=== PATIENT | female | born 1930 | race Asian ===

== ENCOUNTER 2019-05-25 17:39 | Inpatient (IN) | payer MEDICARE, OTHER ==
[~2019-05-25] VITALS: Ht 154.9 cm; Wt 56.9 kg
[2019-05-25] MEDS ORDERED: ONDANSETRON ODT 4 MG ONE (18:42)
--- NOTE | 2019-05-25 18:51 | NUR ---
MEDICATED FOR NAUSEA. REPORT TO CHARLY LAMAS.
[2019-05-25 18:59] LABS: MEAN CORPUSCULAR HEMOGLOBIN 21.8 pg (27.0-34.8); MEAN CORPUSCULAR HGB CONC 31.2 g/dL (32.4-35.8); MEAN CORPUSCULAR VOLUME 70.1 fL (80-100); MEAN PLATELET VOLUME 9.3 fL (7.4-10.4); PLATELET COUNT 266 x10^3/uL (130-400); RED BLOOD COUNT 5.54 x10^6/uL (3.82-5.3); RED CELL DISTRIBUTION WIDTH 15.8 % (9.6-15.2)
[2019-05-25] MEDS ORDERED: ONDANSETRON ODT 4 MG PO ONE (19:00)
[2019-05-25 19:01] LABS: ALANINE AMINOTRANSFERASE 26 U/L (12-78); ALBUMIN 3.8 g/dL (3.4-5.0); ANION GAP 6 mmol/L (5-15); CALCIUM 8.4 mg/dL (8.5-10.1); CHLORIDE 110 mmol/L (98-107); CREATININE 1.11 mg/dL (0.55-1.02)
[2019-05-25 19:03] LABS: ALKALINE PHOSPHATASE 64 U/L (45-117); BILIRUBIN,TOTAL 0.2 mg/dL (0.2-1.0); TOTAL PROTEIN 8.1 g/dL (6.4-8.2)
--- NOTE | 2019-05-25 19:10 | NUR ---
Received report from Kelley LAMAS. Assumed patient care. Patient resting comfortably. Medicated by day shift for nausea. Will follow up to see how patient respnds.
[2019-05-25 19:24] LABS: BASOPHILS % (AUTO) 0 % (0-1); EOSINOPHILS # (AUTO) 0.05 x10^3/uL (0-0.4); EOSINOPHILS % (AUTO) 1 % (1-7); LYMPHOCYTES # (AUTO) 2.72 x10^3/uL (1-3.4); LYMPHOCYTES % (AUTO) 25 % (22-44); MD MORPH REVIEW ONLY; MONOCYTES # (AUTO) 0.35 x10^3/uL (0.2-0.8); MONOCYTES % (AUTO) 3 % (2-9); NEUTROPHILS # (AUTO) 7.77 x10^3/uL (1.8-6.8); NEUTROPHILS % (AUTO) 71 % (42-75)
[2019-05-25 19:25] LABS: ANISOCYTOSIS 1+; HYPOCHROMIA 1+; MICROCYTOSIS 1+; OVALOCYTES 1+; POLYCHROMASIA 1+
[2019-05-25 19:26] LABS: <PLATELET ESTIMATE> ADEQUATE; <PLT MORPHOLOGY> NORMAL PLT MORPH; TARGET CELLS 1+
[2019-05-25] MEDS ORDERED: SODIUM CHLORIDE 0.9%, 500ML IVBOLUS ONE (19:30)
--- NOTE | 2019-05-25 20:34 | NUR ---
Started IV per protcol, ivf fluids. Informed of PO challenge, patient preferred to attempted. Patient tolerated approximately 80cc of water. On return, 500cc bolus of normal saline finished. Relayed information to provider. Provider to bedside, spoke with patient. Patient relayed how little water she was able to tolerate and also expressed not feeling well enough to tolerate food. Patient agreeable to admission.
[2019-05-25] MEDS ORDERED: LOSA1TAB19 PO (21:30)
[2019-05-25] MEDS ORDERED: ONDANSETRON 2MG/ML, 2ML IVPush PRN (21:30)
[2019-05-25] MEDS ORDERED: CLON0.5T PO (21:30)
[2019-05-25] MEDS ORDERED: FAMO20TA7 PO (21:30)
[2019-05-25] MEDS ORDERED: METF500T17 PO (21:30)
[2019-05-25] MEDS ORDERED: ACETAMINOPHEN 325 MG TABLET PO PRN (21:30)
[2019-05-25 22:14] VITALS: BP 136/67
[2019-05-25] MEDS: SODIUM CHLORIDE 0.9% 1,000 ML IV SCH (22:19)
[2019-05-25 22:20] VITALS: BP 136/67
[2019-05-26] VITALS (10 sets, daily range): BP systolic 122–179; BP diastolic 63–78
[2019-05-26 00:23] LABS: CLOSTRIDIUM DIFFICILE ANTIGEN NEGATIVE; CLOSTRIDIUM DIFFICILE TOXIN NEGATIVE (Negative)
[2019-05-26 10:45] LABS: ALANINE AMINOTRANSFERASE 30 U/L (12-78); ALBUMIN 3.4 g/dL (3.4-5.0); ANION GAP 8 mmol/L (5-15); CALCIUM 7.9 mg/dL (8.5-10.1); CHLORIDE 113 mmol/L (98-107); CREATININE 1.09 mg/dL (0.55-1.02)
[2019-05-26 10:48] LABS: ALKALINE PHOSPHATASE 58 U/L (45-117); BILIRUBIN,TOTAL 0.3 mg/dL (0.2-1.0); TOTAL PROTEIN 7.5 g/dL (6.4-8.2)
[2019-05-26 11:01] LABS: MEAN CORPUSCULAR HEMOGLOBIN 21.1 pg (27.0-34.8); MEAN CORPUSCULAR HGB CONC 30.4 g/dL (32.4-35.8); MEAN CORPUSCULAR VOLUME 69.2 fL (80-100); RED BLOOD COUNT 5.46 x10^6/uL (3.82-5.3); RED CELL DISTRIBUTION WIDTH 16.1 % (9.6-15.2)
[2019-05-26 11:02] LABS: BASOPHILS # (AUTO) 0.02 x10^3/uL (0-0.1); BASOPHILS % (AUTO) 0 % (0-1); EOSINOPHILS # (AUTO) 0.11 x10^3/uL (0-0.4); EOSINOPHILS % (AUTO) 1 % (1-7); LYMPHOCYTES # (AUTO) 1.24 x10^3/uL (1-3.4); LYMPHOCYTES % (AUTO) 15 % (22-44); MD NO; MONOCYTES # (AUTO) 0.54 x10^3/uL (0.2-0.8); MONOCYTES % (AUTO) 7 % (2-9); NEUTROPHILS # (AUTO) 6.19 x10^3/uL (1.8-6.8); NEUTROPHILS % (AUTO) 77 % (42-75); PLATELET COUNT 209 x10^3/uL (130-400)
[2019-05-26] MEDS: SODIUM CHLORIDE 0.9% 1,000 ML IV SCH (11:26)
[2019-05-26 12:41] LABS: HEMOGLOBIN A1C 7.4 % (4.2-6.3)
[2019-05-26] MEDS: POTASSIUM PHOSPHATE 44 MEQ in SODIUM CHLORIDE 0.9% 500 ML IV SCH (20:38)
[2019-05-26] MEDS: INSULIN LISPRO 100 UNITS/ML, PEN SQ-INSULIN SCH (20:39)
[2019-05-27 03:21] VITALS: BP 124/56
[2019-05-27] MEDS: POTASSIUM PHOSPHATE 44 MEQ in SODIUM CHLORIDE 0.9% 500 ML IV SCH (05:15)
[2019-05-27 06:31] LABS: ANION GAP 8 mmol/L (5-15); CHLORIDE 114 mmol/L (98-107)
[2019-05-27 06:35] LABS: CALCIUM 7.5 mg/dL (8.5-10.1); CREATININE 0.79 mg/dL (0.55-1.02)
[2019-05-27] MEDS: INSULIN LISPRO 100 UNITS/ML, PEN SQ-INSULIN SCH ×2 (07:00→11:00)
[2019-05-27 07:17] VITALS: BP 116/55
== END 2019-05-27 12:45 | disposition home or self-care (01) | DRG 391 ==
LOC: ED 20:38 → EDIP 20:41 → ED 20:45 → 3N 21:41 → DCLOUNGE 05-27 12:36
PROVIDERS: ADMIT Internal Medicine; ATTEND Internal Medicine
DX: E73.9 Lactose intolerance, unspecified (principal); N17.0 Acute kidney failure with tubular necrosis; E83.39 Other disorders of phosphorus metabolism; I10 Essential (primary) hypertension; E78.5 Hyperlipidemia, unspecified; Z90.710 Acquired absence of both cervix and uterus; E11.9 Type 2 diabetes mellitus without complications; R19.7 Diarrhea, unspecified
CPT/HCPCS: 36415; 80048; 80053; 82728; 82962; 83036; 83540; 83550; 83690; 83735; 84100; 85025; 87324; 93005; 99285; G0378; Q0162; J1815; J7030; J7040